=== PATIENT | female | born 1960 | race Caucasian/White ===

== ENCOUNTER 2017-04-15 10:33 | Emergency (ER) | payer SELFPAY ==
[~2017-04-15] VITALS: Ht 172.7 cm; Wt 68.0 kg
[~2017-04-15 10:33] MED LIST: DOXY100C2 PO; PRED-220 PO; PROAIR HFA8.5 GM IH
[2017-04-15 11:57] VITALS: BP 149/98
--- NOTE | 2017-04-15 12:49 | PHYS DOC ---
Past Medical History Past Medical History: Asthma Past Surgical History: Appendectomy, Cholecystectomy Alcohol Use: None Drug Use: None Adult General Chief Complaint Chief Complaint: SORE THROAT [facility] HPI Patient is a 56 year old female who presents with sore throat and a dry cough for 4-5 days. Patient denies any fever. Patient denies any chest pain or shortness of breath. Review of Systems Review of Systems Constitutional: See history of present illness Eyes: Denies change in visual acuity, redness, or eye pain [] HENT: Sore throat. Denies nasal congestion Respiratory: Cough denies shortness of breath [] Cardiovascular: No additional information not addressed in HPI [] GI: Denies abdominal pain, nausea, vomiting, bloody stools or diarrhea [] : Denies dysuria or hematuria [] Musculoskeletal: Denies back pain or joint pain [] Integument: Denies rash or skin lesions [] Neurologic: Denies headache, focal weakness or sensory changes [] Current Medications Current Medications Current Medications Medications (Trade) Dose Ordered Sig/Tita Start Time Stop Time Status Last Admin Dose Admin Ibuprofen (Motrin) 800 mg 1X ONCE 04/15/17 13:00 04/15/17 13:01 DC 04/15/17 13:21 800 MG Lidocaine HCl (Viscous Lidocaine) 15 ml 1X ONCE 04/15/17 13:00 04/15/17 13:01 DC 04/15/17 13:21 15 ML Allergies Allergies Allergies Coded Allergies Type Severity Reaction Last Updated Verified albuterol Allergy Intermediate NEBULIZER, "MAKES MY B/P GO UP" 09/27/14 Yes codeine Allergy Mild N/V 09/25/14 Yes Physical Exam Physical Exam Constitutional: Well developed, well nourished, no acute distress, non-toxic appearance. [] HENT: Normocephalic, atraumatic, bilateral external ears normal, oropharynx moist, no oral exudates, nose normal. [] Posterior pharynx with moderate erythema and exudate patches. Eyes: PERRLA, EOMI, conjunctiva normal, no discharge. [] Neck: Normal range of motion, no tenderness, supple, no stridor. [] Cardiovascular:Heart rate regular rhythm, no murmur [] Lungs & Thorax: Bilateral breath sounds clear to auscultation [] Abdomen: Bowel sounds normal, soft, no tenderness, no masses, no pulsatile masses. [] Skin: Warm, dry, no erythema, no rash. [] Back: No tenderness, no CVA tenderness. [] Extremities: No tenderness, no cyanosis, no clubbing, ROM intact, no edema. [] Neurologic: Alert and oriented X 3, normal motor function, normal sensory function, no focal deficits noted. [] Psychologic: Affect normal, judgement normal, mood normal. [] Current Patient Data Vital Signs Vital Signs Date Time Temp Pulse Resp B/P (MAP) Pulse Ox O2 Delivery O2 Flow Rate FiO2 04/15/17 11:57 98.3 77 18 98 Room Air 98.3 Lab Values Laboratory Tests Test 04/15/17 12:00 Group A Streptococcus Rapid Negative (NEGATIVE) EKG EKG [] Radiology/Procedures Radiology/Procedures [] Course & Med Decision Making Course & Med Decision Making Pertinent Labs and Imaging studies reviewed. (See chart for details) Patient is in the ED with sore throat and a dry cough for 4-5 days. Chest x-ray is negative for any acute findings, rapid strep test was negative the patient's physical exam is consistent with bacterial pharyngitis. Her throat has white patches with moderate erythema. No abscess. Patient was discharged with amoxicillin and lidocaine viscous. Ibuprofen also recommended for pain. Tylenol so recommended for pain or fever. Follow-up with primary care doctor in one week. Dragon Disclaimer Dragon Disclaimer This electronic medical record was generated, in whole or in part, using a voice recognition dictation system. Departure Departure Impression: Primary Impression: Pharyngitis, acute Additional Impression: Cough Disposition: 01 HOME, SELF-CARE Condition: STABLE Referrals: DALE GALDAMEZ MD (PCP) follow up with your doctor next week Patient Instructions: Cough, Adult, [id number], Viral and Bacterial Pharyngitis Additional Instructions: You were seen with symptoms consistent with pharyngitis. We put you on antibiotics. Ensure you complete them. You can also use saltwater gargles as needed. Use the other medications prescribed as ordered follow-up with your doctor in one week. Come back to the emergency room if symptoms worsen. Scripts Benzonatate (TESSALON PERLE) 100 Mg Capsule 1 CAP PO TID, #30 CAP Prov: MUTUNGA,LOY [employer] 04/15/17 Amoxicillin (AMOXICILLIN) 875 Mg Tablet 1 TAB PO BID, #20 TAB Prov: MUTUNGA,LOY [employer] 04/15/17 Problem Qualifiers Primary Impression: Pharyngitis, acute Pharyngitis/tonsillitis etiology: unspecified etiology Qualified Codes: J02.9 - Acute pharyngitis, unspecified KARLAABHILOY Toussaint [employer] Apr 15, 2017 12:48
--- NOTE | 2017-04-15 12:58 | RAD ---
AP portable chest radiograph 04/15/2017 Clinical History: Cough. An AP portable erect digital radiograph of the chest was obtained. Comparison study is dated 09/25/2014. The cardiac silhouette is normal in size. The thoracic aorta is mildly tortuous. No acute pulmonary infiltrate is seen. No pleural effusion or pneumothorax is noted. The osseous structures are grossly intact. Impression: No acute abnormality is seen.
[2017-04-15 12:59] LABS: NEGATIVE OBC STREP NEG; POSITIVE OBC STREP POS
[2017-04-15] MEDS ORDERED: IBUPROFEN 800 MG TABLET. PO ONE (13:00)
[2017-04-15] MEDS ORDERED: LIDOCAINE 2% VISCOUS 15 ML SOLUTION. SWSW ONE (13:00)
[2017-04-15] MEDS ORDERED: BENZ100C PO (13:35)
[2017-04-15] MEDS ORDERED: AMOX875T PO (13:35)
== END 2017-04-15 13:46 | disposition home or self-care (01) ==
LOC: ER 10:33
DX: J02.9 Acute pharyngitis, unspecified (principal); J45.909 Unspecified asthma, uncomplicated; Z88.5 Allergy status to narcotic agent; Z88.8 Allergy status to other drugs, medicaments and biological substances; Z90.49 Acquired absence of other specified parts of digestive tract
CPT/HCPCS: 71010; 87070; 87880; 99285-25